=== PATIENT | female | born 1990 | race African-American/Black ===

== ENCOUNTER 2019-04-22 13:41 | Inpatient (IN) | payer BC ==
[~2019-04-22] VITALS: Ht 153.4 cm; Wt 79.8 kg
[2019-04-22 14:47] LABS: BASOPHILS % 0.1 % (0.0-2.0); EOSINOPHILS % 0.4 % (0.0-5.0); HEMATOCRIT. 38.3 % (36.0-48.0); HEMOGLOBIN. 13.1 g/dL (12.0-16.0); LYMPHOCYTES % 16.7 % (20.0-50.0); MEAN CORPUSCULAR HEMOGLOBIN 28.7 pg (28.0-32.0); MEAN CORPUSCULAR VOLUME 84.1 fL (81.0-99.0); MEAN PLATELET VOLUME 9.5 fl (7.4-10.4); MONOCYTES % 8.4 % (2.0-8.0); NEUTROPHILS % 74.4 % (40.0-76.0); PLATELET 234 x1000/uL (130-400); RED BLOOD CELL COUNT 4.56 mill/uL (4.2-5.4); RED CELL DISTRIBUTION WIDTH 15.8 % (11.6-14.6)
[2019-04-22 14:53] LABS: INR 0.9
[2019-04-22 14:55] LABS: CHLORIDE 106 mEq/L (98-107)
[2019-04-22] MEDS ORDERED: DEXT 5%/LACTATED RINGERS 1,000 ML IV ONE (16:45)
[2019-04-22] MEDS ORDERED: MISOPROSTOL 200MCG TABLET PO ONE (16:45)
[2019-04-22] MEDS ORDERED: MORPHINE SULFATE 4 MG/ML CPJ (NOT FOR IM USE) IV STA (17:46)
[2019-04-22] MEDS ORDERED: ONDANSETRON HCL 4MG/2ML INJ IV STA (17:46)
[2019-04-22 20:00] VITALS: BP 116/71
[2019-04-22] MEDS ORDERED: METHYLERGONOVINE MALEATE 0.2 MG/ML IM NR (21:30)
[2019-04-22] MEDS ORDERED: ACETAMINOPHEN 325MG TABLET PO PRN (21:30)
[2019-04-22 22:00] VITALS: BP 116/71
[2019-04-22] MEDS: HYDROMORPHONE HCL/PF 2MG/ML CPJ IV PRN (23:46)
[2019-04-23] VITALS (7 sets, daily range): BP systolic 123–158; BP diastolic 60–90
[2019-04-23] MEDS: MISOPROSTOL 200MCG TABLET VG SCH ×3 (01:36→09:54)
[2019-04-23] MEDS ORDERED: OXYTOCIN 20 UNITS in LACTATED RINGERS 1,000 ML IV SCH ×2 (02:00→08:15)
[2019-04-23] MEDS: HYDROMORPHONE HCL/PF 2MG/ML CPJ IV PRN ×3 (07:57→20:22)
[2019-04-23] MEDS ORDERED: METOCLOPRAMIDE HCL 10MG/2ML VIAL ONE (11:42)
[2019-04-23] MEDS ORDERED: SUCCINYLCHOLINE CHLORIDE 200MG/10ML IV ONE (11:42)
[2019-04-23] MEDS ORDERED: PROPOFOL 200MG/20ML VIAL IV ONE (11:42)
[2019-04-23] MEDS ORDERED: MIDAZOLAM HCL 2 MG/2 ML VIAL ONE (11:42)
[2019-04-23] MEDS ORDERED: ONDANSETRON HCL 4MG/2ML INJ ONE (11:42)
[2019-04-23] MEDS ORDERED: FENTANYL CITRATE/PF 50MCG/ML 2ML VIAL ONE (11:42)
[2019-04-23] MEDS ORDERED: GLYCOPYRROLATE 0.2 MG/ML 2ML VIAL ONE (11:42)
[2019-04-23] MEDS ORDERED: LIDOCAINE HCL/PF 1% 10 MG/ML 5ML VIAL ONE (11:42)
[2019-04-23] MEDS ORDERED: METHYLERGONOVINE MALEATE 0.2 MG/ML ONE (12:14)
[2019-04-23] MEDS ORDERED: ONDANSETRON HCL 4MG/2ML INJ IV PRN (12:45)
[2019-04-23] MEDS ORDERED: HYDROMORPHONE HCL/PF 2MG/ML CPJ IV PRN (12:45)
[2019-04-23] MEDS ORDERED: MORPHINE SULFATE 2 MG/ML CPJ (NOT FOR IM USE) IV PRN (12:45)
[2019-04-23] MEDS ORDERED: MEPERIDINE HCL/PF 25MG/ML CPJ IV PRN ×2 (12:45)
[2019-04-23] MEDS ORDERED: SODIUM CHLORIDE 0.9% 1,000 ML IV ONE (13:00)
== END 2019-04-23 21:30 | disposition home or self-care (01) | DRG 779 ==
LOC: ER 13:41 → 6EST 17:48 → EDBEDREQTM 18:28 → ENRESERV 20:08 → 6EST 22:31
PROVIDERS: ADMIT Obstetrics & Gynecology Obstetrics; ATTEND Obstetrics & Gynecology Obstetrics
PROC: 10D17Z9 Manual Extraction of Products of Conception, Retained, Via Natural or Artificial Opening (ICD-10-PCS; principal; 2019-04-23)
DX: O03.4 Incomplete spontaneous abortion without complication (principal); D25.9 Leiomyoma of uterus, unspecified; O99.331 Smoking (tobacco) complicating pregnancy, first trimester; O34.11 Maternal care for benign tumor of corpus uteri, first trimester; O02.1 Missed abortion; F17.200 Nicotine dependence, unspecified, uncomplicated; Z3A.13 13 weeks gestation of pregnancy
CPT/HCPCS: 36415; 80053; 85025; 86850; 86900; 88300; 88305; 99285; J0330; J1170; J2210; J2250; J2270; J2405; J2704; J2765; J3010; J3490; J7120; J7121